=== PATIENT | male | born 1955 | race Caucasian/White ===

== ENCOUNTER 2017-08-29 08:02 | Emergency (ER) | payer MEDICARE, OTHER ==
[~2017-08-29] VITALS: Ht 175.3 cm; Wt 73.7 kg
[2017-08-29] MEDS ORDERED: ondansetron 4mg rapidly disintigrating tab PO ONE (09:20)
[2017-08-29] MEDS ORDERED: morphine 4 MG/ML inj SYRINge IM ONE (09:20)
[2017-08-29] MEDS ORDERED: ONDA8TAB9 PO (09:24)
[2017-08-29] MEDS ORDERED: HYDR-3965 PO (09:24)
[2017-08-29] MEDS ORDERED: CYCL-1 PO (09:24)
[2017-08-29 10:09] VITALS: BP 125/95
== END 2017-08-29 10:10 | disposition home or self-care (01) ==
LOC: ER 08:03
DX: M25.511 Pain in right shoulder (principal); Z98.890 Other specified postprocedural states; Z79.899 Other long term (current) drug therapy
CPT/HCPCS: 73030; 96372; 99284; A4565; J2270